=== PATIENT | female | born 2000 | race Two or more races ===

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

== ENCOUNTER 2021-09-14 14:10 | Emergency (ER) | payer MEDICAID, OTHER ==
[~2021-09-14] VITALS: Ht 154.9 cm; Wt 47.6 kg
[2021-09-14 15:00] VITALS: BP 117/79
[2021-09-14] MEDS ORDERED: methylPREDNISolone SOD SUCC 40 MG/ML VL IM ONE (15:30)
[2021-09-14] MEDS ORDERED: IPRATROPIUM BROM 0.5 MG/2.5ML INH SOL NEB ONE (15:30)
[2021-09-14] MEDS ORDERED: ALBUTEROL SULF 2.5 MG/0.5ML(0.5%) NEB SOLN NEB ONE (15:30)
[2021-09-14] MEDS ORDERED: ALBU108A5 IN (15:39)
[2021-09-14] MEDS ORDERED: AZIT250T8 PO (15:39)
== END 2021-09-14 16:18 | disposition home or self-care (01) ==
LOC: ER 14:10
DX: J45.990 Exercise induced bronchospasm (principal); J03.90 Acute tonsillitis, unspecified; F17.210 Nicotine dependence, cigarettes, uncomplicated
CPT/HCPCS: 71046; 94640; 96372; 99283; J2920; J7644

== ENCOUNTER 2021-10-23 09:07 | Emergency (ER) | payer MEDICAID ==
[~2021-10-23] VITALS: Ht 154.9 cm; Wt 49.4 kg
[~2021-10-23 09:07] MED LIST: ALBU108A5 IN; AZIT250T8 PO
[2021-10-23 09:16] VITALS: BP 114/84
[2021-10-23 10:30] LABS: Urine Bacteria NONE SEEN /hpf (None Seen); Urine Blood Negative /uL (Negative); Urine Mucus FEW (None Seen); Urine Specific Gravity 1.022 (1.001-1.035); Urine WBC 30 /hpf (0 - 5)
== END 2021-10-23 11:49 | disposition left against medical advice (07) ==
LOC: ER 09:07
DX: R07.89 Other chest pain (principal); Z53.21 Procedure and treatment not carried out due to patient leaving prior to being seen by health care provider
CPT/HCPCS: 81001; 81025; 93005

== ENCOUNTER 2022-01-18 11:40 | Emergency (ER) | payer MEDICAID ==
[2022-01-18 12:46] LABS: Urine Bacteria FEW /hpf (None Seen); Urine Blood 3+ /uL (Negative); Urine Mucus FEW (None Seen); Urine Specific Gravity 1.013 (1.001-1.035); Urine WBC 19 /hpf (0 - 5)
[2022-01-18 13:34] LABS: Basophils # (auto) 0 10 ^3/uL (0-0.2); Basophils % (auto) 0.8 % (0.0-2.0); Eosinophils # (auto) 0.1 10 ^3/uL (0-0.8); Lymphocytes # (auto) 0.6 10 ^3/uL (0.4-5.4); Mean Corpuscular Hemoglobin 25.3 pg (28.0-32.0); Monocytes # (auto) 0.3 10 ^3/uL (0-1.3); Neutrophils # (auto) 3.4 10 ^3/uL (1.6-8.6)
[2022-01-18 13:37] LABS: Eosinophils % (auto) 3.3 % (0.0-7.0); Hematocrit 37.3 % (36.0-46.0); Lymphocytes % (auto) 13.5 % (10.0-50.0); Mean Corpuscular Hgb Conc. 32.1 g/dL (32.0-36.0); Mean Corpuscular Volume 78.7 fL (80.0-100.0); Neutrophils % (auto) 75.4 % (37.0-80.0); Nucleated Red Blood Cells % 0.1 %; Red Blood Cells 4.74 10^6/uL (4.0-5.20); Red Cell Distribution Width 15.3 % (11.8-14.3); White Blood Cell 4.5 10^3/uL (4.4-10.8)
[2022-01-18 13:49] LABS: Albumin 4.5 g/dL (3.4-5.0); BUN/Creatinine Ratio 8.3; Calcium 9.2 mg/dL (8.5-10.1); Potassium 3.9 mmol/L (3.5-5.1)
[2022-01-18 13:52] LABS: Bilirubin, Total 0.7 mg/dL (0.2-1.0); Total Protein 7.8 g/dL (6.4-8.2)
[2022-01-18 14:00] VITALS: BP 120/72
[2022-01-18] MEDS ORDERED: ONDANSETRON ODT 4 MG TAB PO ONE (14:30)
[2022-01-18] MEDS ORDERED: cefTRIAXone SOD 1,000 MG VL IM ONE (14:30)
[2022-01-18] MEDS ORDERED: NITR-87 PO (14:33)
[2022-01-18] MEDS ORDERED: ONDA-144 PO (14:33)
== END 2022-01-18 15:23 | disposition home or self-care (01) ==
LOC: ER 11:40
DX: N39.0 Urinary tract infection, site not specified (principal); R11.2 Nausea with vomiting, unspecified; F12.10 Cannabis abuse, uncomplicated
CPT/HCPCS: 36415; 80053; 81001; 85025; 96372; 99283; J0696; Q0162

== ENCOUNTER 2022-04-30 19:12 | Emergency (ER) | payer MEDICAID ==
[~2022-04-30] VITALS: Ht 154.9 cm; Wt 50.0 kg
[~2022-04-30 19:12] MED LIST changes: +NITR-87 PO; +ONDA-144 PO
[2022-04-30 23:52] VITALS: BP 117/70
== END 2022-05-01 | disposition home or self-care (01) ==
LOC: ER 19:13
DX: S00.83XA Contusion of other part of head, initial encounter (principal); Z79.2 Long term (current) use of antibiotics; Z79.899 Other long term (current) drug therapy; Y04.2XXA Assault by strike against or bumped into by another person, initial encounter; Y93.89 Activity, other specified; Y92.89 Other specified places as the place of occurrence of the external cause; Y99.8 Other external cause status
CPT/HCPCS: 70486

== ENCOUNTER 2023-03-19 16:39 | Emergency (ER) | payer MEDICAID ==
[~2023-03-19] VITALS: Ht 154.9 cm; Wt 53.3 kg
[~2023-03-19 16:39] MED LIST changes: +AZIT-81 PO; -AZIT250T8 PO
[2023-03-19 16:48] VITALS: BP 126/78; PULSE 74; RESP 16; O2SAT 99
== END 2023-03-19 20:09 | disposition left against medical advice (07) ==
LOC: ER 16:39
DX: R22.32 Localized swelling, mass and lump, left upper limb (principal); R22.43 Localized swelling, mass and lump, lower limb, bilateral; L53.9 Erythematous condition, unspecified; Z53.21 Procedure and treatment not carried out due to patient leaving prior to being seen by health care provider

== ENCOUNTER 2023-10-02 22:23 | Emergency (ER) | payer MEDICAID ==
[~2023-10-02] VITALS: Ht 154.9 cm; Wt 50.0 kg
[~2023-10-02 22:23] MED LIST changes: +AZIT-185 PO; -AZIT-81 PO
[2023-10-02 22:30] VITALS: BP 120/86; PULSE 84; RESP 16; O2SAT 99
== END 2023-10-03 00:12 | disposition left against medical advice (07) ==
LOC: ER 22:23
DX: R11.2 Nausea with vomiting, unspecified (principal); M79.10 Myalgia, unspecified site; Z53.21 Procedure and treatment not carried out due to patient leaving prior to being seen by health care provider